=== PATIENT | female | born 1965 | race African-American/Black ===

== ENCOUNTER 2018-06-01 12:45 | Emergency (ER) | payer OTHER ==
[2018-06-01 13:33] LABS: Absolute Lymphocytes (CBC) 1.6 K/uL (0.7-4.9); Absolute Monocytes 0.7 K/uL (0.1-1.3); Absolute Neutrophil 5.3 K/uL (1.8-8.0); Basophils % 0.9 % (0-1.3); Eosinophils % 2.5 % (0-4.4); Hematocrit 38.4 % (36.0-45.0); Lymphocytes % 20.7 % (15.3-44.8); MPV 8.4 fL (7.6-11.3); Monocytes % 8.9 % (3.3-12.3); RBC Red Blood Cell Count 4.65 M/uL (3.86-4.86)
--- NOTE | 2018-06-01 13:40 | RAD REPORT ---
EXAM DESCRIPTION: CT - Abdomen Pelvis Wo Contrast - 06/01/2018 1:25 pm CLINICAL HISTORY: Abdominal pain, hernia history, hypertension, patient stated allergy to oral and I V contrast COMPARISON: CT imaging November 2012 TECHNIQUE: Axial [address] imaging of the abdomen and pelvis was performed without IV contrast. No IV contrast was given because of allergy, abnormal renal function, patient refusal or physician re quest. Oral contrast was given. All CT scans are performed using dose optimization technique as appropriate and may include automated exposure control or mA/KV adjustment according to patient size. FINDINGS: No suspicious findings in the lung bases. No suspicious liver lesions seen on noncontrast imaging. In the midline left lobe there is a 16 elias meter oval mass showing attenuation value consistent with fluid. Attenuation value was 2 Hounsfield u nits. This mass measures 13 mm in 2012. This is not regarded as suspicious. No other significant or c oncerning liver finding. Spleen and pancreas show no suspicious findings. Gallbladder and biliary tree are also without suspic ious finding. No hydronephrosis or suspicious renal mass. No significant adrenal finding. Isodense renal masses an d pyelonephritis cannot be excluded in the absence of IV contrast. Urinary bladder is contracted. No ovarian significant finding. History indicated hysterectomy. There is evidence for uterine tissue pre sent unchanged from 2013. No dilated bowel loops or bowel wall thickening. No free air, free fluid or inflammatory stranding. N o mass or bulky lymphadenopathy. No omental thickening. Very wide neck umbilical hernia is unchanged from prior imaging. A supraumbilical ventral hernia is present containing only fat. Hernia is approxi mately 3.5 cm in diameter extending approximately 5 cm craniocaudal dimension. The neck of the hernia is 5 cm above the umbilicus with a 15 millimeter neck. Disc and bony degenerative changes are present with no acute bone finding. IMPRESSION: Approximately 5 centimeter sized fat only supraumbilical hernia. Neck of the hernia is 5 cm above the umbilicus with a 15 millimeter diameter. Wide neck umbilical hernia is unchanged from 2013. Additional findings are detailed in the body of the report without suspicious change from comparison. Full assessment is limited is the absence of IV contrast.
[2018-06-01 13:50] LABS: ALT/SGPT 23 U/L (12-78); AST/SGOT 16 U/L (15-37); Alkaline Phosphatase 64 U/L (45-117); BUN Blood Urea Nitrogen 14 mg/dL (7-18); Bicarbonate 26 mmol/L (21-32); Bilirubin Direct < 0.1 mg/dL (0-0.2); Bilirubin Total 0.3 mg/dL (0.2-1.0); Glucose Level 92 mg/dL (74-106); Lipase 85 U/L (73-393); Potassium 4.1 mmol/L (3.5-5.1); Protein, Total 8.7 g/dL (6.4-8.2); Sodium Level 138 mmol/L (136-145)
[2018-06-01 14:16] LABS: Urine Bacteria >50 /HPF (<20); Urine Culture Reflex Order NOT NEEDED
--- NOTE | 2018-06-01 14:27 | ER ---
Nurse's Notes [facility] Name: Magaly Umaña Age: 52 yrs Sex: Female : 1965 Arrival Date: 06/01/2018 Time: 12:48 Bed 23 Private MD: Behzad Garcia Diagnosis: Ventral hernia without obstruction or gangrene Presentation: 06/01 12:58 Presenting complaint: Patient states: Dr. Kirk office sent me here, i have a hernia tw2 and my blood pressure high. Transition of care: patient was not received from another setting of care. Onset of symptoms was June 01, 2018. Risk Assessment: Do you want to hurt yourself or someone else? Patient reports no desire to harm self or others. Initial Sepsis Screen: Does the patient meet any 2 criteria? No. Patient's initial sepsis screen is negative. Does the patient have a suspected source of infection? No. Patient's initial sepsis screen is negative. Care prior to arrival: None. 12:58 Method Of Arrival: Ambulatory tw2 12:58 Acuity: KELSIE 3 tw2 Triage Assessment: 13:01 General: Appears well groomed, Behavior is calm, cooperative, appropriate for age. tw2 Pain: Complains of pain in abdomen. NURSING CLINICAL DIRECTOR: 12:50 LMP N/A - Hysterectomy tw2 Historical: - Allergies: 13:01 PENICILLINS; tw2 13:09 Iodinated Contrast- Oral and IV Dye; tw2 13:09 Ciprofloxacin; tw2 - Home Meds: 13:01 "high blood pressure pill" 25mg started 3 mths ago [Active]; tw2 - PMHx: 13:01 Hypertension; tw2 - PSHx: 13:01 partial hysterectomy; umbilical hernia repair; tw2 - Immunization history:: Adult Immunizations. - Social history:: Smoking status: . - Ebola Screening: : Patient denies travel to an Ebola-affected area in the 21 days before illness onset. Screenin:02 Abuse screen: Denies threats or abuse. Nutritional screening: No deficits noted. tw2 Tuberculosis screening: No symptoms or risk factors identified. Fall Risk None identified. Assessment: 13:02 General: Appears in no apparent distress. well groomed, Behavior is calm, cooperative, tw2 appropriate for age. Pain: Complains of pain in abdomen. Neuro: Level of Consciousness is awake, alert, obeys commands, Oriented to person, place, time, situation. Cardiovascular: Heart tones S1 S2 Capillary refill < 3 seconds Patient's skin is warm and dry. Respiratory: Airway is patent Respiratory effort is even, unlabored, Respiratory pattern is regular, symmetrical, Breath sounds are clear bilaterally. GI: Abdomen is flat, Bowel sounds present X 4 quads. Reports lower abdominal pain, upper abdominal pain, Patient currently denies nausea, vomiting. : No signs and/or symptoms were reported regarding the genitourinary system. EENT: No signs and/or symptoms were reported regarding the EENT system. Derm: No signs and/or symptoms reported regarding the dermatologic system. Musculoskeletal: Range of motion: intact in all extremities. 13:58 Reassessment: Patient appears in no apparent distress at this time. No changes from tw2 previously documented assessment. Patient and/or family updated on plan of care and expected duration. Pain level reassessed. Patient is alert, oriented x 3, equal unlabored respirations, skin warm/dry/pink. 14:38 Reassessment: Patient appears in no apparent distress at this time. No changes from tw2 previously documented assessment. Patient and/or family updated on plan of care and expected duration. Pain level reassessed. Patient is alert, oriented x 3, equal unlabored respirations, skin warm/dry/pink. Vital Signs: 12:50 BP 185 / 97; Pulse 76; Resp 17; Temp 98.6(O); Pulse Ox 100% on R/A; Weight 86.18 kg tw2 (R); Height 5 ft. 7 in. (170.18 cm); Pain 6/10; 13:56 BP 154 / 96; Pulse 76; Resp 17; Pulse Ox 97% on R/A; tw2 14:38 BP 158 / 93; Pulse 74; Resp 17; Pulse Ox 97% on R/A; tw2 12:50 Body Mass Index 29.76 (86.18 kg, 170.18 cm) tw2 ED Course: 12:48 Patient arrived in ED. mr 12:49 Behzad Garcia MD is Private Physician. mr 12:49 Brandon [facility]ile [facility]. jr8 12:49 James Aleman MD is Attending Physician. jr8 12:49 Placed in gown. Bed in low position. Adult w/ patient. Pulse ox on. NIBP on. tw2 12:52 Елена Kingsley, RN is Primary Nurse. tw2 12:59 Triage completed. tw2 13:01 Arm band placed on. tw2 13:17 Missed attempt(s): 22 gauge in right antecubital area. blood collected. Bleeding tw2 controlled, band aid applied, catheter tip intact. 13:23 CT completed. Patient tolerated procedure well. Patient moved to CT via wheelchair. jg6 Patient moved back from CT. 13:26 CT Abd/Pelvis - Without Cont In Process Unspecified. EDMS 13:59 Urine Microscopic Only Sent. tw2 14:26 Alin Summers MD is Referral Physician. 14:38 No provider procedures requiring assistance completed. Patient did not have IV access tw2 during this emergency room visit. Administered Medications: No medications were administered Outcome: 14:26 Discharge ordered by MD. gs 14:39 Discharged to home ambulatory, with family. tw2 14:39 Condition: stable 14:39 Discharge instructions given to patient, family, Instructed on discharge instructions, follow up and referral plans. no drinking with medication, no driving heavy equipment, medication usage, Demonstrated understanding of instructions, follow-up care, medications, Prescriptions given X 1. 14:39 Patient left the ED. tw2 Signatures: Dispatcher [employer] EDMS Angel Agarwal RN RN Puja Magdaleno Brandon Haile, PA PA jr8 Елена Kingsley RN RN tw2 James Aleman MD MD gs Garcia, Jessica jg6 Corrections: (The following items were deleted from the chart) 13:01 12:50 BP 188 / 90; Pulse 76bpm; Resp 17bpm; Pulse Ox 100%; Temp 98.1F; sg tw2
--- NOTE | 2018-06-01 14:27 | EDPHYS ---
Physician Documentation [facility] Name: Magaly Umaña Age: 52 yrs Sex: Female : 1965 Arrival Date: 06/01/2018 Time: 12:48 Bed 23 Private MD: Behzad Garcia ED Physician James Aleman HPI: 06/01 14:22 This 52 yrs old Black Female presents to ER via Ambulatory with complaints of Hernia. gs 14:22 Onset: The symptoms/episode began/occurred 5 day(s) ago. Associated signs and symptoms: gs Pertinent negatives: blood in stools, vomiting, vomiting blood. The symptoms are described as crampy, sharp. Modifying factors: The symptoms are alleviated by nothing, the symptoms are aggravated by nothing. Severity of pain: At its worst the pain was moderate in the emergency department the pain is unchanged. The patient has experienced similar episodes in the past, a few times. RAFTSMAN: 12:50 LMP N/A - Hysterectomy tw2 Historical: - Allergies: 13:01 PENICILLINS; tw2 13:09 Iodinated Contrast- Oral and IV Dye; tw2 13:09 Ciprofloxacin; tw2 - Home Meds: 13:01 "high blood pressure pill" 25mg started 3 mths ago [Active]; tw2 - PMHx: 13:01 Hypertension; tw2 - PSHx: 13:01 partial hysterectomy; umbilical hernia repair; tw2 - Immunization history:: Adult Immunizations. - Social history:: Smoking status: . - Ebola Screening: : Patient denies travel to an Ebola-affected area in the 21 days before illness onset. ROS: 14:22 All other systems are negative. gs Exam: 14:22 Head/Face: Normocephalic, atraumatic. Eyes: Pupils equal round and reactive to light, gs extra-ocular motions intact. Lids and lashes normal. Conjunctiva and sclera are non-icteric and not injected. Cornea within normal limits. Periorbital areas with no swelling, redness, or edema. ENT: Nares patent. No nasal discharge, no septal abnormalities noted. Tympanic membranes are normal and external auditory canals are clear. Oropharynx with no redness, swelling, or masses, exudates, or evidence of obstruction, uvula midline. Mucous membranes moist. Neck: Trachea midline, no thyromegaly or masses palpated, and no cervical lymphadenopathy. Supple, full range of motion without nuchal rigidity, or vertebral point tenderness. No Meningismus. Chest/axilla: Normal chest wall appearance and motion. Nontender with no deformity. No lesions are appreciated. Cardiovascular: Regular rate and rhythm with a normal S1 and S2. No gallops, murmurs, or rubs. Normal PMI, no JVD. No pulse deficits. Respiratory: Lungs have equal breath sounds bilaterally, clear to auscultation and percussion. No rales, rhonchi or wheezes noted. No increased work of breathing, no retractions or nasal flaring. Back: No spinal tenderness. No costovertebral tenderness. Full range of motion. Skin: Warm, dry with normal turgor. Normal color with no rashes, no lesions, and no evidence of cellulitis. MS/ Extremity: Pulses equal, no cyanosis. Neurovascular intact. Full, normal range of motion. Neuro: Awake and alert, GCS 15, oriented to person, place, time, and situation. Cranial nerves II-XII grossly intact. Motor strength 5/5 in all extremities. Sensory grossly intact. Cerebellar exam normal. Normal gait. 14:22 Constitutional: The patient appears alert, awake. 14:22 Abdomen/GI: Palpation: moderate abdominal tenderness, in the umbilical area, rebound tenderness, is not appreciated, Hernia: noted in the paraumbilical area, incarceration, is not appreciated, tenderness, that is mild, that is moderate. Vital Signs: 12:50 BP 185 / 97; Pulse 76; Resp 17; Temp 98.6(O); Pulse Ox 100% on R/A; Weight 86.18 kg tw2 (R); Height 5 ft. 7 in. (170.18 cm); Pain 6/10; 13:56 BP 154 / 96; Pulse 76; Resp 17; Pulse Ox 97% on R/A; tw2 14:38 BP 158 / 93; Pulse 74; Resp 17; Pulse Ox 97% on R/A; tw2 12:50 Body Mass Index 29.76 (86.18 kg, 170.18 cm) tw2 MDM: 12:49 Patient medically screened. 8 14:22 Differential diagnosis: non-specific abd pain, INCARCERATED HERNIA, SBO. Data reviewed: vital signs, nurses notes, lab test result(s), radiologic studies. Counseling: I had a detailed discussion with the patient and/or guardian regarding: the historical points, exam findings, and any diagnostic results supporting the discharge/admit diagnosis, the need for outpatient follow up. Response to treatment: the patient's symptoms have mildly improved after treatment. Physician consultation: Alin Summers MD and will see patient in office. 06/01 12:58 Order name: Basic Metabolic Panel; Complete Time: 14:19 06/01 12:58 Order name: CBC with Diff; Complete Time: 14:19 06/01 12:58 Order name: Hepatic Function; Complete Time: 14:19 06/01 12:58 Order name: Lipase; Complete Time: 14:19 06/01 12:58 Order name: Urine Microscopic Only; Complete Time: 14:19 06/01 14:09 Order name: Urine Dipstick--Ancillary (enter results) 06/01 12:58 Order name: Labs collected and sent; Complete Time: 13:20 06/01 12:58 Order name: Urine Dipstick-Ancillary (obtain specimen); Complete Time: 13:59 06/01 13:09 Order name: CT Abd/Pelvis - Without Cont; Complete Time: 13:44 gs Administered Medications: No medications were administered Disposition: 06/01/18 14:26 Discharged to Home. Impression: Ventral hernia without obstruction or gangrene. - Condition is Stable. - Discharge Instructions: Hernia, Adult. - Prescriptions for Tramadol 50 mg Oral Tablet - take 1 tablet by ORAL route every 12 hours as needed; 10 tablet. - Medication Reconciliation Form, Thank You Letter, Antibiotic Education, Prescription Opioid Use form. - Follow up: Alin Summers MD; When: 2 - 3 days; Reason: Re-evaluation by your physician. Signatures: Dispatcher [employer] EDAZ Brandon Haile PA PA jr8 Елена Kingsley RN RN tw2 James Aleman MD MD Corrections: (The following items were deleted from the chart) 13:03 12:58 Urine Test ordered. tw2 13:13 12:59 Abdomen Pelvis W Con+CT.RAD.BRZ ordered. EDAZ EDMS 14:39 14:26 06/01/2018 14:26 Discharged to Home. Impression: Ventral hernia without tw2 obstruction or gangrene. Condition is Stable. Forms are Medication Reconciliation Form, Thank You Letter, Antibiotic Education, Prescription Opioid Use. Follow up: Dr. Alin Summers; When: 2 - 3 days; Reason: Re-evaluation by your physician. gs
[2018-06-01 14:52] VITALS: TEMP 98.6
[2018-06-01 14:56] VITALS: O2SAT 97
[2018-06-01 14:57] VITALS: BP 158/93
[2018-06-01 17:44] LABS: Urine Blood 1+ (NEG); Urine Glucose NEGATIVE (NEG); Urine Protein TRACE (NEG); Urine Specific Gravity 1.015 (1.005-1.030)
== END 2018-06-01 14:39 | disposition home or self-care (01) ==
LOC: ER 12:45
DX: K43.9 Ventral hernia without obstruction or gangrene (principal); I10 Essential (primary) hypertension; Z88.0 Allergy status to penicillin; Z88.1 Allergy status to other antibiotic agents; Z91.041 Radiographic dye allergy status
CPT/HCPCS: 36415; 74176; 80048; 80076; 81003; 81015; 83690; 85025; 99284

== ENCOUNTER 2018-07-26 08:50 | Day surgery (SDC) | payer OTHER ==
[2018-07-26 09:26] LABS: Absolute Lymphocytes (CBC) 1.4 K/uL (0.7-4.9); Absolute Monocytes 0.5 K/uL (0.1-1.3); Absolute Neutrophil 5.2 K/uL (1.8-8.0); Basophils % 0.4 % (0-1.3); Eosinophils % 1.5 % (0-4.4); Hematocrit 38.5 % (36.0-45.0); Lymphocytes % 19.7 % (15.3-44.8); MPV 7.9 fL (7.6-11.3); Monocytes % 7.4 % (3.3-12.3); RBC Red Blood Cell Count 4.57 M/uL (3.86-4.86)
[2018-07-26 09:29] LABS: BUN Blood Urea Nitrogen 15 mg/dL (7-18); Bicarbonate 30 mmol/L (21-32); Glucose Level 88 mg/dL (74-106); Potassium 4.4 mmol/L (3.5-5.1); Sodium Level 138 mmol/L (136-145)
[2018-07-26] MEDS ORDERED: NA CHLORIDE 0.9% 1,000 ML ONE (09:29)
--- NOTE | 2018-07-26 09:38 | RAD REPORT ---
EXAM DESCRIPTION: Usha Peng (2 Views)07/26/2018 8:49 am CLINICAL HISTORY: Preop for ventral hernia repair COMPARISON: None FINDINGS: The lungs appear clear of acute infiltrate. The heart is normal size IMPRESSION: No acute abnormalities displayed
[2018-07-26] MEDS ORDERED: PROPOFOL 200 MG/20 ML VIAL IV ONE (09:52)
[2018-07-26] MEDS ORDERED: ROCURONIUM 50 MG/5 ML VIAL IV ONE (09:52)
[2018-07-26] MEDS ORDERED: MIDAZOLAM HCL 2 MG/2 ML INJ ONE (09:52)
[2018-07-26] MEDS ORDERED: LIDOCAINE 1% MPF 5 ML VIAL ONE (09:52)
[2018-07-26] MEDS ORDERED: FENTANYL CITR 100 MCG/2 ML ONE ×2 (09:52→11:46)
[2018-07-26] MEDS ORDERED: CEFAZOLIN/SWI 1gm 1 GM/10 ML SYR ONE (10:39)
[2018-07-26] MEDS ORDERED: GLYCOPYRROLATE 0.2 MG/ML SYR ONE (11:34)
[2018-07-26] MEDS ORDERED: NEOSTIGMINE 1 MG/ML -10 ML VIAL ONE (11:35)
[2018-07-26] MEDS ORDERED: KETOROLAC 30 MG/ML INJ ONE (11:35)
[2018-07-26] MEDS ORDERED: NS 0.9% VIAL 10 ML ONE (11:41)
[2018-07-26] MEDS ORDERED: EPHEDRINE SULF 50 MG/ML VIAL ONE (11:41)
[2018-07-26] MEDS ORDERED: HYDROMORPHONE HCL 2 MG/ML inj ONE (12:40)
[2018-07-26] MEDS ORDERED: ONDANSETRON 4 MG/2 ML VIAL ONE (13:01)
--- NOTE | 2018-07-26 14:05 | EKG ---
Test Date: 2018-07-26 Test Time: 08:29:12 Service Restorer Emergency: [facility] MEASUREMENT RESULTS: Intervals: Rate: 60 FL: 154 QRSD: 76 QT: 418 QTc: 418 [place]: P: 18 FL: 154 QRS: 16 T: 45 INTERPRETIVE STATEMENTS: Normal sinus rhythm Normal ECG No previous ECG available for comparison Electronically Signed On 07-26-18 14:04:51 CDT by Raul Atwood
[2018-07-26 14:09] VITALS: O2SAT 98
[2018-07-26] MEDS ORDERED: METOCLOPRAMIDE 10 MG/2mL INJ ONE (14:55)
[2018-07-26 15:38] VITALS: BP 138/79; TEMP 97.9
--- NOTE | 2018-07-26 20:38 | DS ---
Date of Discharge: 07/26/2018 The patient will to Day Surgery and home when stable. Disposition: Home. Condition: Stable. Discharge Instructions: Resume home medications and diet. Activity as tolerated. No heavy lifting. Remove outer dressing in 2 days. Shower. Keep wound clean and dry. Follow up in my office in 1 w [facility]. Call for appointment. Tylenol No. 3 one tablet p.o. q.4 p.r.n. pain. Abdominal binders [place] SOLIS/DIOGO Voice ID: [id number] Report ID: [id number]
--- NOTE | 2018-07-26 20:38 | OP ---
Date of Procedure: 07/26/2018 Surgeon: Alin Summers MD [employer] Heat [employer] Machinist: TAMY Villaseñor. Preoperative Diagnosis: Incarcerated ventral hernia. Postoperative Diagnosis: Incarcerated ventral hernia. Procedure: Laparoscopic assisted repair of incarcerated ventral hernia. Estimated Blood Loss: Minimal. Specimen: Hernia sac and contents. Findings: Above. Anesthesia: General. Complications: None. Disposition: The patient tolerated the procedure in stable condition, taken to the Recovery in good general condition. Procedure In Detail: The patient was brought to the OR and placed in supine position. General anest hesia was begun. The patient was prepped and draped in usual sterile fashion. Marcaine 0.5% was inf iltrated locally. Then a 15-blade was used to make a 1 cm left upper quadrant incision. Subcutaneou s tissue was divided. The fascia was identified and divided. A #1 Vicryl stay suture was placed. P eritoneal cavity was entered with sharp and blunt dissection. A 12 mm trocar was placed into the per itoneal cavity under direct vision. Pneumoperitoneum was established. A 5 mm trocar placed in the l eft lower quadrant. Laparoscopy revealed some adhesions to the ventral surface of the previous umbil ical hernia. LigaSure was utilized to remove those omental adhesions. No evidence of bleeding was n oted. A hernia in the epigastric region was noted, approximately 2-3 cm. A 4 cm incision was made o rita the incarcerated hernia. Subcutaneous tissue divided. Hernia sac and contents identified. An a pproximately 2.5 cm defect remained. Subsequently, this was primary closed with #1 PDS Bard oval mes h, appropriate size was utilized. Balloon system was utilized in the standard fashion. Complete cov erage of the hernia site as well as at least 3 [address] border [address] the way around was accomplished. Absorb aTack was used to secure the mesh to the peritoneal surface. The balloon component was removed. All parts were intact and then there was no evidence of bleeding or bowel injury appreciated. All troca rs were removed under direct vision. Stay sutures were tied to each other across the fascial defect. Subcutaneous wounds were irrigated. Bleeding controlled with cautery. 3-0 chromic used to approxi mate the subcutaneous tissue, and casimiro were used to close the skin. Sterile dressing was applied. The patient awakened and taken to Recovery in good general condition. /MODL Voice ID: [id number] Report ID: [id number]
== END 2018-07-26 15:30 | disposition home or self-care (01) ==
LOC: OR 08:50
PROVIDERS: ATTEND Surgery
PROC: 0WUF4JZ Supplement Abdominal Wall with Synthetic Substitute, Percutaneous Endoscopic Approach (ICD-10-PCS; principal; 2018-07-26 09:00)
DX: K43.6 Other and unspecified ventral hernia with obstruction, without gangrene (principal); K66.0 Peritoneal adhesions (postprocedural) (postinfection); I10 Essential (primary) hypertension; Z79.899 Other long term (current) drug therapy
CPT/HCPCS: 36415; 71046; 80048; 82962; 85025; 88302; 93005; J0690; J1170; J2250; J2405; J2704; J2710; J2765; J3010; J7030